=== PATIENT | male | born 1960 | race Caucasian/White ===

== ENCOUNTER → 2018-08-23 | Outpatient (CLI) | payer OTHER ==
[~2018-08-23] MED LIST: ADVIL200 MG PO; AMBIEN 10MG10 MG PO; ASPIRIN 32325 MG/TAB PO; CIPRO 500MG TA500 MG PO; CLARITIN 1010 MG/TAB PO; DHEA25 M1 PO; LIPITOR 40MG TA40 MG PO; NORCO 325 MG-51 TAB PO; PRILOSEC 20MG20 MG PO; [UNRECOGNIZED DRUG - OTHER] PO
== END ==
LOC: COL.RAD 10:20
DX: Z02.71 Encounter for disability determination (principal); M47.816 Spondylosis without myelopathy or radiculopathy, lumbar region; M17.11 Unilateral primary osteoarthritis, right knee; Z87.81 Personal history of (healed) traumatic fracture; Z98.890 Other specified postprocedural states